=== PATIENT | male | born 1995 ===

== ENCOUNTER 2018-03-27 16:40 | Emergency (ER) | payer BC ==
--- NOTE | 2018-03-27 19:21 | RAD ---
INDICATION: Anterior chest pain COMPARISON: October 24, 2016 TECHNIQUE: PA and lateral dual-energy views were obtained. FINDINGS: Bones/Soft Tissues: There are no acute bony findings. Cardiomediastinal: The cardiomediastinal silhouette is normal. Lungs: There are no infiltrates. Pleura: There are no pleural effusions. Other: None IMPRESSION: NO ACTIVE DISEASE.
--- NOTE | 2018-03-27 19:25 | ED ---
HPI Chest Pain - HPI Summary HPI Summary: This is quincy Dennis documenting for attending Ayan Jones MD. This patient is a 22 year old M presenting to [facility] with a chief complaint of chest pain since 10:00 this morning. The patient reports that he has had pain like this before but it resolved much more quickly. The patient rates the pain 3 /10 in severity. Symptoms aggravated by using his pectoral muscles and deep breaths. Symptoms alleviated by nothing. Patient denies cough, nausea, or diaphoresis. Patient is currently taking antibiotics for a fungal infection. Patient denies any pulmonary or cardiac PMHx. Patient notes that he occasionally smokes. - History of Current Complaint Chief Complaint: EDChestPainROMI Time Seen by Provider: 03/27/18 18:55 Hx Obtained From: Patient Onset/Duration: Started Hours Ago, Atraumatic, Still Present Time of Onset: 10:00 Timing: Constant Initial Severity: Mild Current Severity: Mild Pain Intensity: 3 Pain Scale Used: 0-10 Numeric Aggravating Factor(s): Movement - use of pectoral muscles, Deep Breaths Alleviating Factor(s): Nothing Associated Signs and Symptoms: Positive: Chest Pain. Negative: Diaphoresis, Nausea, Cough - Allergy/Home Medications Allergies/Adverse Reactions: Allergies Allergy/AdvReac Type Severity Reaction Status Date / Time No Known Allergies Allergy Verified 03/27/18 16:46 Home Medications: Home Medications NK [No Home Medications Reported] 03/27/18 [History Confirmed 03/27/18] PMH/Surg Hx/FS Hx/Imm Hx Endocrine/Hematology History: Denies: Hx Diabetes Respiratory History: Reports: Hx Asthma - as a child Opthamlomology History: Denies: Hx Legally Blind EENT History: Denies: Hx Deafness Infectious Disease History: No Infectious Disease History: Denies: Traveled Outside the [place] in Last 30 Days - Family History Known Family History: Positive: None - patient denies any FHx - Social History Alcohol Use: Occasionally Substance Use Type: Reports: Marijuana Smoking Status (MU): Light Every Day Tobacco Smoker Review of Systems Negative: Fever, Skin Diaphoresis Positive: Chest Pain Negative: Cough Negative: Nausea All Other Systems Reviewed And Are Negative: Yes Physical Exam - Summary Physical Exam Summary: Appearance: Well-appearing, Well-nourished, lying in bed comfortably Skin: Warm, dry, no obvious rash Eyes: sclera anicteric, no conjunctival pallor ENT: mucous membranes moist, pharynx appears normal Neck: Supple, nontender Respiratory: Clear to auscultation, no signs of respiratory distress Cardiovascular: Normal S1, S2. No murmurs. Normal distal pulses in tibial and radial bilaterally. Chest: tenderness to both costochondral junctions superiorly Abdomen: Soft, nontender, normal active bowel sounds present Musculoskeletal: Normal, Strength/ROM Intact Neurological: A&Ox3, awake and alert, mentation is normal, speech is fluent and appropriate Psychiatric: affect is normal, does not appear anxious or depressed Triage Information Reviewed: Yes Vital Signs On Initial Exam: Initial Vitals Temp Pulse Resp BP Pulse Ox 98.3 F 83 16 134/82 99 03/27/18 16:41 03/27/18 16:41 03/27/18 16:41 03/27/18 16:41 03/27/18 16:41 Vital Signs Reviewed: Yes Diagnostics - Vital Signs Vital Signs Temp Pulse Resp BP Pulse Ox 03/27/18 16:41 98.3 F 83 16 134/82 99 - Laboratory Lab Statement: Any lab studies that have been ordered have been reviewed, and results considered in the medical decision making process. - Radiology CXR Xray Interpretation: No Acute Changes - IMPRESSION: NO ACTIVE DISEASE. Dr Jones has reviewed this report. Radiology Interpretation Completed By: Radiologist - EKG 17:58 Cardiac Rate: Bradycardia - at 50 bpm EKG Rhythm: Sinus Bradycardia ST Segment: Normal Ectopy: None Chest Pain Course/Dx - Diagnoses Provider Diagnoses: Costochondritis Discharge - Sign-Out/Discharge Documenting (check all that apply): Patient Departure - Discharge Plan Condition: Stable Disposition: HOME Patient Education Materials: Costochondritis (ED) Referrals: [facility] [Outside]
[2018-03-27 20:30] VITALS: BP 118/73
== END 2018-03-27 20:29 | disposition home or self-care (01) ==
LOC: ED 16:40
DX: M94.0 Chondrocostal junction syndrome [Tietze] (principal); R00.1 Bradycardia, unspecified; F17.200 Nicotine dependence, unspecified, uncomplicated
CPT/HCPCS: 71046; 93005; 99282